=== PATIENT | female | born 2000 | race American Indian/Alaskan Native ===

== ENCOUNTER 2021-04-30 11:50 | Inpatient (IN) | payer MEDICAID ==
[2021-04-30] MEDS ORDERED: LACTATED RINGERS 1,000 ML IV ONE (13:05)
[2021-04-30] MEDS ORDERED: ePHEDrine SULFATE 50 MG/1 ML INJ IV PRN ×3 (13:59→23:07)
[2021-04-30] MEDS ORDERED: LOPERAMIDE 2 MG CAP PO PRN (13:59)
[2021-04-30] MEDS ORDERED: LIDOCAINE (2%) 20 MG/1 ML VIAL 20 ML MDV INFILTRATI ONE (13:59)
[2021-04-30] MEDS ORDERED: MINERAL OIL 30 ML ORAL LIQD PO PRN (13:59)
[2021-04-30] MEDS ORDERED: CARBOPROST TROMETHAMINE 250 MCG/1 ML INJ IM PRN (13:59)
[2021-04-30] MEDS ORDERED: ONDANSETRON 4 MG/2 ML INJ IV PRN (13:59)
[2021-04-30] MEDS ORDERED: miSOPROStol 200 MCG TAB PR PRN (13:59)
[2021-04-30] MEDS ORDERED: TERBUTALINE 1 MG/1 ML INJ SUB-Q PRN (13:59)
[2021-04-30] MEDS ORDERED: METHYLERGONOVINE MALEATE 0.2 MG/ML VIAL IM PRN (13:59)
[2021-04-30] MEDS ORDERED: fentaNYL 100 MCG/2 ML INJ IV PRN (13:59)
[2021-04-30] MEDS ORDERED: BUTORPHANOL 2 MG/1 ML INJ IV PRN (13:59)
[2021-04-30] MEDS ORDERED: OXYTOCIN 10 UNIT/1 ML INJ IM PRN (13:59)
[2021-04-30] MEDS ORDERED: LACTATED RINGERS 1,000 ML IV SCH ×2 (14:00→15:00)
[2021-04-30] MEDS ORDERED: OXYTOCIN DRIP 30 UNITS/500 ML BAG IV SCH ×2 (14:00)
--- NOTE | 2021-04-30 14:15 | History and Physical Report ---
History of Present Illness Date of examination: 04/30/21 Date of admission: 04/30/2021 Chief complaint: "Water broke at 1050 this morning" History of present illness: 21yo, G1 @ 37 wks, initiated care with [facility] at 13.1 wks gestation. 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 Presents to [facility] with reports of water breaking this morning. Reports + FM. Denies any VB. Labs: A+, antibody negative; rubella immune; HBsAg negative; HIV negative; RPR negative; GC/Chlamydia negative; 1 hr gtt - 112; GBS negative. Past History Past Medical History: asthma, other (ADHD; Depressive disorder) Past Surgical History: no surgical history [employer]DR[employer]IC History: other (HSV-2 seropositive) Family/Genetic History: other (Adopted, unknown family history) Social history: single, full code. denies: smoking, alcohol abuse, prescription drug abuse, IV drug use - Obstetrical History Expected Date of Delivery: 05/21/21 Actual Gestation: 37 Week(s) 0 Day(s) : 1 Para: 0 Hx # Term Pregnancies: 0 Number of Pregnancies: 0 Spontaneous Abortions: 0 Induced : 0 Number of Living Children: 0 Medications and Allergies Allergies Allergy/AdvReac Type Severity Reaction Status Date / Time aspirin Allergy Severe Angioedema Verified 04/30/21 12:11 Review of Systems All systems: negative Genitourinary: leakage of fluid (since 1050 this am) - Vital Signs Vital signs: Vital Signs Pulse BP 105 H 107/66 04/30/21 12:10 04/30/21 12:10 Temp Pulse Resp BP Pulse Ox 98.5 F 103 H 20 109/67 99 04/30/21 13:20 04/30/21 14:03 04/30/21 13:20 04/30/21 13:25 04/30/21 14:03 - Physical Exam Breasts: Positive: normal Cardiovascular: Regular rate Lungs: Positive: Normal air movement Abdomen: Positive: other (gravid) Vagina: Positive: other (clear fluids noted) Uterus: Positive: enlarged (S=D) Deep Tendon Reflex Grade: Normal +2 - Obstetrical FHR: category 1 Cervical Dilatation: 3 (per RN) Cervical Effacement Percentage: 70 station: -2 Uterine Contraction Pattern: Absent Uterine Tone Measurement Phase: Resting Results Abnormal lab results 04/30/21 Range/Units 12:40 Membranes Rupture Positive A (Negative) All other labs normal. Assessment and Plan - Patient Problems (1) SROM (spontaneous rupture of membranes) Current Visit: Yes Status: Acute Plan to address problem: Admit to L & D Initiate Pitocin titration as tolerated Jonny meds as desired per orders Anticipate (2) HSV-2 seropositive Current Visit: Yes Status: Acute
[2021-04-30 14:53] LABS: Hematocrit 31.4 % (30.3-42.9); Hemoglobin 10.8 gm/dl (10.1-14.3); Mean Corpuscular HGB Conc 34 % (30-34); Mean Corpuscular Volume 86 fl (79-97); Platelet Count 321 K/mm3 (140-440); Red Blood Count 3.64 M/mm3 (3.65-5.03)
[2021-04-30] MEDS ORDERED: NalbUPHINE 10 MG/1 ML INJ IV PRN (15:00)
[2021-04-30] MEDS ORDERED: ACETAMINOPHEN 325 MG TAB PO PRN (15:00)
[2021-04-30 15:22] LABS: Bilirubin,Urine NEG (Negative); Blood,Urine NEG (Negative); Color,Urine Straw (Yellow); Protein,Urine <15 mg/dL mg/dL (Negative); Urobilinogen,Urine < 2.0 mg/dL (<2.0)
--- NOTE | 2021-04-30 19:19 | Ultrasound Report ---
Obstetrical ultrasound limited INDICATION: Assess position and well-being IMPRESSION: heart rate 141 bpm. The fetus is in the cephalic position. Signer Name: Samir Zarate MD Signed: 04/30/2021 7:14 PM Workstation Name: [id number]
[2021-04-30] MEDS ORDERED: NALOXONE 2 MG/2 ML INJ IV PRN (23:07)
--- NOTE | 2021-04-30 23:07 | Anesthesia Consultation ---
Anesthesia Consult and Med Hx Date of service: 04/30/21 - Airway Anesthetic Teeth Evaluation: Good ROM Head & Neck: Adequate Mental/Hyoid Distance: Adequate Mallampati Class: Class II Intubation Access Assessment: Probably Good - Pulmonary Exam CTA: Yes - Cardiac Exam Cardiac Exam: RRR - Pre-Operative Health Status ASA Pre-Surgery Classification: ASA2 Proposed Anesthetic Plan: Epidural - Pulmonary Hx Asthma: Yes - Cardiovascular System Hx Hypertension: No - Central Nervous System Hx Seizures: No Hx Psychiatric Problems: Yes - Endocrine Hx Renal Disease: No Hx Hypothyroidism: No Hx Hyperthyroidism: No - Hematic Hx Anemia: No Hx Sickle Cell Disease: No - Other Systems Hx Alcohol Use: No (social drinker)
--- NOTE | 2021-04-30 23:31 | Progress Note ---
Labor Epidural - Labor Epidural Start Time: 23:19 Stop Time: 23:26 Performed by:: ULYSSES BLACKMON Procedure: Patient is requesting epidural for labor pain. H&P, and labs reviewed. Procedure explained, questions answered, consent obtained. Patient in sitting position with blood pressure cuff and pulse ox on and working. Timeout performed immediately before start of procedure. Sterile chlorahexadine 0.5% prep/drape. 3 mL 1% lidocaine skin wheal at L[3]-L[4]. 18-gauge GLIIF epidural needle advanced to [id number] with saline at 6 cm. positive aspiration csf, catheter threaded to 10 cm, dexmedetomidine 5 mcg administered. Sterile steri- strips and tegaderm applied, followed by tape reinforcement. RN instructed epidural pump at 2 ml/hr d/t intrathecal catheter. Patient tolerated procedure well. Ronald TEJEDA
[2021-04-30] MEDS ORDERED: fentaNYL-BUPIV 2 MCG/ML-0.125% 200 MCG/100 ML BAG EPIDURAL SCH (23:45)
--- NOTE | 2021-05-01 02:53 | Procedure Note ---
OB Delivery Note - Delivery Date of Delivery: 05/01/21 Surgeon: CLAUDETTE NUÑEZ Estimated blood loss: 300cc - Vaginal Delivery presentation: vertex Delivery position: OA Delivery augmentation: pitocin Delivery monitor: external FHT, external uterine Route of delivery: Delivery placenta: spontaneous Delivery cord: nuchal cord Episiotomy: none Delivery laceration: none Anesthesia: epidural - Infant A at 1 minute: 8 at 5 minutes: 9 Infant Gender: Male (weight 6lbs 12oz)
[2021-05-01] MEDS ORDERED: PROMETHAZINE 25 MG TAB PO PRN (02:57)
[2021-05-01] MEDS ORDERED: diphenhydrAMINE 25 MG CAP PO PRN (02:57)
[2021-05-01] MEDS ORDERED: LANOLIN/ZINC/DIMETHICONE (LANSINOH) 7 GM TP PRN (02:57)
[2021-05-01] MEDS ORDERED: PROMETHAZINE 25 MG RECT SUPP PR PRN (02:57)
[2021-05-01] MEDS ORDERED: MAGNESIUM HYDROXIDE (MOM) ORAL LIQD UDC PO PRN (02:57)
[2021-05-01] MEDS ORDERED: ONDANSETRON 4 MG/2 ML INJ IV PRN (02:57)
[2021-05-01] MEDS ORDERED: WITCH HAZEL/ GLYCERIN PAD TP PRN (02:57)
[2021-05-01] MEDS ORDERED: HYDROcodone/ACETAMINOPHEN 5-325 MG TAB PO PRN (02:58)
--- NOTE | 2021-05-01 14:50 | Post Anesthesia Evaluation ---
- Post Anesthesia Evaluation Patient Participated: Yes Airway Patent: Yes Stable Respiratory Function: Yes Nausea/Vomiting: No Temp > 96.8F: Yes Pain Manageable: Yes Adequeate Hydration: Yes Anesthesia Complications: No Block Receding Appropriately: Yes Patient on Ventilator: No
[2021-05-01] MEDS ORDERED: BUTALB/ACETAMINOPHEN/CAFFEINE TAB PO PRN (15:00)
[2021-05-01] MEDS: IBUPROFEN 600 MG TAB PO SCH (16:23)
[2021-05-01 19:05] LABS: Hematocrit 31.9 % (30.3-42.9); Hemoglobin 10.6 gm/dl (10.1-14.3)
[2021-05-02] MEDS: IBUPROFEN 600 MG TAB PO SCH ×2 (00:30→06:16)
--- NOTE | 2021-05-02 08:19 | Progress Note ---
Assessment and Plan - Patient Problems (1) SROM (spontaneous rupture of membranes) Current Visit: Yes Status: Acute Plan to address problem: Patient doing well Discharge home Subjective - Subjective Date of service: 05/02/21 Interval history: Patient is without complaints. Her pain is well controlled. Patient reports: appetite normal, voiding normally, pain well controlled : doing well Objective - Vital Signs Latest vital signs: Vital Signs Temp Pulse Resp BP Pulse Ox 05/02/21 01:00 98.1 F 86 20 93/55 97 05/01/21 16:03 20 05/01/21 16:00 98.6 F 84 20 114/69 99 05/01/21 11:46 98.5 F 92 H 16 112/77 98 Intake and Output 05/01/21 05/02/21 05/02/21 22:59 06:59 14:59 Intake Total 600 240 Balance 600 240 Intake: Oral 600 240 Other: Total, Intake Amount 240 240 # Voids Void 1 1
--- NOTE | 2021-05-02 08:21 | Discharge Summary ---
Providers - Providers Date of Admission: 04/30/21 18:09 Date of discharge: 05/02/21 Attending physician: CLAUDETTE NUÑEZ Primary care physician: CLAUDETTE NUÑEZ Hospitalization Reason for admission: rupture of membranes Delivery: Discharge diagnosis: IUP at term delivered Hospital course: The patient was admitted after positive rupture membranes. She had a normal spontaneous vaginal delivery. course was uneventful. Disposition: DC- TO HOME OR SELFCARE - Discharge Diagnoses (1) SROM (spontaneous rupture of membranes) Status: Acute Plan - Discharge Medications Prescriptions: Ibuprofen [Motrin] 800 mg PO Q8HR PRN #30 tablet PRN Reason: Pain , Severe (7-10) HYDROcodone/APAP 5-325 [[place] 5/325] 1 each PO Q6HR PRN #15 tablet PRN Reason: Pain - Provider Discharge Summary Activity: no sex for 6 weeks, no heavy lifting 4 weeks, no strenuous exercise Diet: routine Instructions: routine Additional instructions: [] Smoking cessation referral if applicable(refer to patient education folder for contact #) [] Refer to [facility] Booklet Call your doctor immediately for: * Fever > 100.5 * Heavy vaginal bleeding ( >1 pad per hour) * Severe persistent headache * Shortness of breath * Reddened, hot, painful area to leg or breast * Schedule visit in 4 weeks - Follow up plan
[2021-05-02 12:58] VITALS: BP 104/66
== END 2021-05-02 13:15 | disposition home or self-care (01) | DRG 775 ==
LOC: TRG 11:50 → APU 11:52 → TRG 14:33 → LD 15:24 → OB 05-01 04:41
PROVIDERS: ADMIT Obstetrics & Gynecology; ATTEND Obstetrics & Gynecology
PROC: 10E0XZZ Delivery of Products of Conception, External Approach (ICD-10-PCS; principal; 2021-05-01)
PROC: 3E0R3BZ Introduction of Anesthetic Agent into Spinal Canal, Percutaneous Approach (ICD-10-PCS; 2021-05-01)
PROC: 00HU33Z Insertion of Infusion Device into Spinal Canal, Percutaneous Approach (ICD-10-PCS; 2021-05-01)
DX: O69.81X0 Labor and delivery complicated by cord around neck, without compression, not applicable or unspecified (principal); Z20.822 Contact with and (suspected) exposure to COVID-19; Z37.0 Single live birth; Z3A.37 37 weeks gestation of pregnancy; Z88.6 Allergy status to analgesic agent; F32.9 Major depressive disorder, single episode, unspecified; F90.9 Attention-deficit hyperactivity disorder, unspecified type; O99.344 Other mental disorders complicating childbirth
CPT/HCPCS: 36415; 76815; 81001; 84112; 85014; 85018; 85027; 86850; 86900; 86901; 99211; G0378; G0463; J2590; J3010; J7120; U0003